=== PATIENT | male | born 1970 | race Caucasian/White ===

== ENCOUNTER 2022-08-01 02:28 | Inpatient (IN) | payer MEDICAID ==
[~2022-08-01] VITALS: Ht 172.7 cm; Wt 63.0 kg
[2022-08-01] MEDS ORDERED: MORPHINE SULFATE 4 MG/ML CPJ (NOT FOR IM USE) IV STA (02:52)
[2022-08-01] MEDS ORDERED: ONDANSETRON HCL 4MG/2ML INJ IV STA (02:52)
[2022-08-01] MEDS ORDERED: IOHEXOL-350 100 ML BOTTLE ONE (03:46)
[2022-08-01 03:53] LABS: CHLORIDE 121 mEq/L (98-107)
[2022-08-01 04:04] LABS: BASOPHILS % 0.2 % (0.0-2.0); EOSINOPHILS % 1.7 % (0.0-5.0); ETHANOL BLOOD 113 mg/dL; HEMOGLOBIN. 15.4 g/dL (14.0-18.0); LYMPHOCYTES % 28.5 % (20.0-50.0); MEAN CORPUSCULAR HEMOGLOBIN 30.1 pg (28.0-32.0); MEAN CORPUSCULAR VOLUME 86.3 fL (80.0-94.0); MEAN PLATELET VOLUME 8.9 fl (7.4-10.4); MONOCYTES % 5.9 % (2.0-8.0); NEUTROPHILS % 63.7 % (40.0-76.0); PLATELET 235 x1000/uL (130-400); RED CELL DISTRIBUTION WIDTH 14.1 % (11.6-14.6)
[2022-08-01] MEDS ORDERED: POTASSIUM CHLORIDE 20MEQ TABLET SR PO NR (04:30)
[2022-08-01] MEDS ORDERED: MAGNESIUM/ALUMINUM HYDROXIDE/SIMETHICONE 30ML UDC PO NR (04:30)
[2022-08-01] MEDS ORDERED: CALCIUM GLUCONATE 100MG/ML 10ML VIAL IV NR (04:30)
[2022-08-01] MEDS ORDERED: SODIUM CHLORIDE 0.9% 1,000 ML IV NR (04:30)
[2022-08-01] MEDS ORDERED: KETOROLAC 15MG/ML VIAL IV ONE (05:45)
[2022-08-01] MEDS ORDERED: ASPI-1497 MT (06:21)
[2022-08-01] MEDS ORDERED: DOCUSATE SODIUM 100MG CAPSULE PO PRN (10:00)
[2022-08-01] MEDS ORDERED: NITROGLYCERIN 0.4MG TABLET SL SL PRN (10:00)
[2022-08-01] MEDS ORDERED: ZOLPIDEM TARTRATE 5MG TABLET PO PRN (10:00)
[2022-08-01] MEDS ORDERED: CLONIDINE 0.1MG TABLET PO PRN (10:00)
[2022-08-01] MEDS ORDERED: ACETAMINOPHEN 325MG TABLET PO PRN ×2 (10:00)
[2022-08-01] MEDS ORDERED: MAGNESIUM/ALUMINUM HYDROXIDE/SIMETHICONE 30ML UDC PO PRN (10:00)
[2022-08-01] MEDS ORDERED: ONDANSETRON HCL 4MG/2ML INJ IV PRN (10:00)
[2022-08-01] MEDS ORDERED: KETOROLAC 15MG/ML VIAL IV PRN (10:00)
[2022-08-01] MEDS ORDERED: GUAIFENESIN 200MG/10ML SUGAR FREE UDC PO PRN (10:00)
[2022-08-01] MEDS ORDERED: IPRATROPIUM/ALBUTEROL 0.5-3(2.5)MG/3ML NEB NEB PRN (10:00)
[2022-08-01] MEDS: ENOXAPARIN 40MG/0.4ML SYR SUBCUT SCH (11:00)
[2022-08-01] MEDS ORDERED: MVI, ADULT NO.1 10 ML, FOLIC ACID 1 MG, THIAMINE HCL 100 MG in SODIUM CHLORIDE 0.9% 1,0... IV SCH ×4 (11:00)
[2022-08-01] MEDS: KCL 20MEQ/100ML PREMIX 100 ML IV NR ×2 (11:27→15:05)
[2022-08-01 11:43] LABS: T4 FREE 1.39 ng/dL (0.76-1.46)
[2022-08-01 13:11] LABS: FOLIC ACID (FOLATE) SERUM 12.8 ng/mL (>5.38)
[2022-08-01] MEDS: SUCRALFATE 1 G/10 ML UDC PO SCH ×3 (15:05→20:45)
[2022-08-01 16:00] VITALS: BP 105/58
[2022-08-01 16:01] LABS: CREATINE KINASE 54 IU/L (39-308); CREATINE KINASE MB FRACTION < 1.0 ng/mL (0.5-3.6)
[2022-08-01] MEDS ORDERED: DEXTROSE 50% WATER 50ML SYRINGE IV PRN (17:00)
[2022-08-01 17:43] VITALS: BP 105/58
[2022-08-01] MEDS: BLOOD SUGAR DIAGNOSTIC STRIP TEST SCH ×2 (18:36→20:45)
[2022-08-01] MEDS: INSULIN LISPRO 100 UNITS/ML SUBCUT SCH ×2 (18:41→20:45)
[2022-08-01 21:19] VITALS: BP 112/64
[2022-08-02] VITALS: BP 116/59
[2022-08-02 00:11] LABS: CREATINE KINASE 54 IU/L (39-308); CREATINE KINASE MB FRACTION < 1.0 ng/mL (0.5-3.6)
[2022-08-02 04:00] VITALS: BP 113/55
[2022-08-02] MEDS: BLOOD SUGAR DIAGNOSTIC STRIP TEST SCH ×2 (07:06→13:28)
[2022-08-02 08:00] VITALS: BP 127/85
[2022-08-02 08:42] LABS: BASOPHILS % 0.4 % (0.0-2.0); HEMATOCRIT. 41.1 % (42.0-52.0); HEMOGLOBIN. 14.4 g/dL (14.0-18.0); LYMPHOCYTES % 24.6 % (20.0-50.0); MEAN CORPUSCULAR HEMOGLOBIN 30.2 pg (28.0-32.0); MEAN CORPUSCULAR VOLUME 85.8 fL (80.0-94.0); MONOCYTES % 9.1 % (2.0-8.0); NEUTROPHILS % 62.9 % (40.0-76.0); PLATELET 231 x1000/uL (130-400); RED BLOOD CELL COUNT 4.78 mill/uL (4.7-6.1)
[2022-08-02] MEDS: SUCRALFATE 1 G/10 ML UDC PO SCH ×2 (08:43→13:41)
[2022-08-02] MEDS ORDERED: ASPIRIN 81MG EC TABLET PO SCH (09:00)
[2022-08-02] MEDS ORDERED: PANTOPRAZOLE SODIUM 40 MG/VIAL IV SCH (09:00)
[2022-08-02 09:03] LABS: CHLORIDE 108 mEq/L (98-107)
[2022-08-02] MEDS: INSULIN LISPRO 100 UNITS/ML SUBCUT SCH ×2 (09:04→13:10)
[2022-08-02 09:12] LABS: PHOSPHORUS 2.4 mg/dL (2.5-4.9)
[2022-08-02] MEDS ORDERED: SUCR1TAB30 MT (10:50)
[2022-08-02] MEDS ORDERED: OMEP20CA14 MT (10:50)
[2022-08-02] MEDS ORDERED: POTASSIUM-SODIUM PHOSPHATE POWDER PACKET PO NR (11:00)
[2022-08-02 12:00] VITALS: BP 117/72
[2022-08-02] MEDS: ENOXAPARIN 40MG/0.4ML SYR SUBCUT SCH (13:41)
[2022-08-02 13:59] VITALS: BP 117/72
== END 2022-08-02 15:55 | disposition home or self-care (01) | DRG 243 ==
LOC: ER 02:28 → 7WST 08:34 → EDBEDREQ 08:57 → EDBEDREQTM 08:57
PROVIDERS: ADMIT Internal Medicine; ATTEND Internal Medicine
DX: K21.9 Gastro-esophageal reflux disease without esophagitis (principal); E43 Unspecified severe protein-calorie malnutrition; E87.0 Hyperosmolality and hypernatremia; E83.51 Hypocalcemia; E87.6 Hypokalemia; E11.9 Type 2 diabetes mellitus without complications; I10 Essential (primary) hypertension; M54.50 Low back pain, unspecified
CPT/HCPCS: 36415; 71045; 71275; 76705; 80053; 80320; 82248; 82550; 82553; 82607; 82746; 82962; 83036; 83540; 83550; 83735; 83880; 84100; 84439; 84443; 84484; 85025; 93005; 93970; 99285; C9113; J0610; J1650; J1815; J1885; J2270; J2405; J3411; J3480; J3490; J7030; Q9967; G0480

== ENCOUNTER 2025-01-15 04:41 | Emergency (ER) | payer SELFPAY ==
[~2025-01-15] VITALS: Ht 162.6 cm; Wt 63.0 kg
[~2025-01-15 04:41] MED LIST: ASPI-1497 MT; OMEP20CA14 MT; SUCR1TAB30 MT
[2025-01-15 04:52] VITALS: O2SAT 99
[2025-01-15 05:18] LABS: BASOPHILS % 0.4 % (0.0-2.0); HEMATOCRIT. 43.8 % (42.0-52.0); HEMOGLOBIN. 14.9 g/dL (14.0-18.0); LYMPHOCYTES % 32.9 % (20.0-50.0); MEAN CORPUSCULAR HEMOGLOBIN 29.6 pg (28.0-32.0); MEAN CORPUSCULAR HGB CONC 34.2 g/dL (31.0-37.0); MEAN CORPUSCULAR VOLUME 86.8 fL (80.0-94.0); MEAN PLATELET VOLUME 8.2 fl (7.4-10.4); MONOCYTES % 7.6 % (2.0-8.0); NEUTROPHILS % 55.1 % (40.0-76.0); PLATELET 230 x1000/uL (130-400); RED BLOOD CELL COUNT 5.04 mill/uL (4.7-6.1); RED CELL DISTRIBUTION WIDTH 14.4 % (11.6-14.6); WHITE BLOOD COUNT 5.3 x1000/uL (4.5-11.0)
[2025-01-15] MEDS ORDERED: KETOROLAC 15MG/ML VIAL IM ONE (05:30)
[2025-01-15 05:32] LABS: CHLORIDE 105 mEq/L (98-107); POTASSIUM 4.4 mEq/L (3.5-5.1); SODIUM 140 mEq/L (136-145)
[2025-01-15 05:33] LABS: CALCIUM 9.4 mg/dL (8.7-10.4); CARBON DIOXIDE 28 mEq/L (21-32)
[2025-01-15 05:38] LABS: GLUCOSE 198 mg/dL (70-105); UREA NITROGEN BLOOD 17 mg/dL (9-23)
[2025-01-15 05:40] LABS: ALANINE AMINOTRANSFERASE 24 IU/L (10-49); ALBUMIN 4.3 g/dL (3.2-4.8); ASPARTATE AMINOTRANSFERASE 22 IU/L (<34)
[2025-01-15 05:41] LABS: BILIRUBIN TOTAL 0.4 mg/dL (0.1-1.0); PROTEIN TOTAL 7.5 g/dL (6.0-8.3)
[2025-01-15] MEDS: KETOROLAC 30MG/ML VIAL IM ONE (05:42)
[2025-01-15 07:11] VITALS: BP 131/75; PULSE 78; RESP 20; TEMP 36.6; O2SAT 97
== END 2025-01-15 07:22 | disposition home or self-care (01) ==
LOC: ER 04:41
DX: M25.561 Pain in right knee (principal); M25.562 Pain in left knee; E11.9 Type 2 diabetes mellitus without complications; I10 Essential (primary) hypertension; Z79.82 Long term (current) use of aspirin; Z79.899 Other long term (current) drug therapy
CPT/HCPCS: 80053; 85025; 36415; 72170; 73562; 93970; 96372; 99285; J1885 ×2; Z7610

== ENCOUNTER 2025-04-15 10:44 | Emergency (ER) | payer SELFPAY ==
[~2025-04-15] VITALS: Ht 165.1 cm; Wt 70.0 kg
[2025-04-15 10:54] VITALS: O2SAT 99
[2025-04-15] MEDS: HYDROCODONE/ACETAMINOPHEN 5/325MG TABLET PO ONE (12:11)
[2025-04-15] MEDS ORDERED: HYDR-4001 MT (12:30)
[2025-04-15 12:40] VITALS: BP 130/80; PULSE 80; RESP 16; TEMP 36.9; O2SAT 99
== END 2025-04-15 12:40 | disposition home or self-care (01) ==
LOC: ER 10:44
DX: S62.317A Displaced fracture of base of fifth metacarpal bone, left hand, initial encounter for closed fracture (principal); R07.89 Other chest pain; E11.9 Type 2 diabetes mellitus without complications; I10 Essential (primary) hypertension; Z79.899 Other long term (current) drug therapy; W11.XXXA Fall on and from ladder, initial encounter; Y93.89 Activity, other specified; Y92.89 Other specified places as the place of occurrence of the external cause; Y99.8 Other external cause status
CPT/HCPCS: 99284; 71045; 73130; 29125; A6449

== ENCOUNTER 2025-06-21 08:50 | Emergency (ER) | payer OTHER ==
[~2025-06-21] VITALS: Ht 165.1 cm; Wt 64.0 kg
[~2025-06-21 08:50] MED LIST changes: +HYDR-4001 MT
[2025-06-21 09:01] VITALS: O2SAT 98
[2025-06-21] MEDS: IBUPROFEN 600MG TABLET PO ONE (09:36)
[2025-06-21] MEDS ORDERED: IBUP-1455 MT (10:33)
[2025-06-21 10:50] VITALS: BP 112/70; PULSE 70; RESP 15; TEMP 36.7; O2SAT 98
== END 2025-06-21 10:52 | disposition home or self-care (01) ==
LOC: ER 08:50
DX: M79.642 Pain in left hand (principal); I10 Essential (primary) hypertension; E11.9 Type 2 diabetes mellitus without complications; Z79.899 Other long term (current) drug therapy
CPT/HCPCS: 73130; 99283